=== PATIENT | female | born 1985 | race Caucasian/White ===

== ENCOUNTER 2020-05-23 06:40 | Day surgery (SDC) | payer MEDICAID ==
[~2020-05-23] VITALS: Ht 152.4 cm; Wt 51.7 kg
[~2020-05-23 06:40] MED LIST: ALBU2.5V13 NEB; BACL10TA GT; DULR RC; IBUP-1984 GT; LEVE500T GT; LORA10TA7 GT; MEDR150D9 IM; MULT-620 PO; POLY119P2 PO; POTA20LI5 CORPAK; SENN-263 PO
[2020-05-23 07:05] VITALS: BP 96/65
[2020-05-23] MEDS ORDERED: iohexol 300 MG/1 ML 50ml polymer ONE (08:26)
[2020-05-23 09:12] VITALS: BP 107/62
== END 2020-05-23 09:30 | disposition home or self-care (01) ==
LOC: SSTAY O 06:40
PROVIDERS: ATTEND Radiology Vascular & Interventional Radiology
DX: Z93.1 Gastrostomy status (principal); G80.1 Spastic diplegic cerebral palsy
CPT/HCPCS: 43762; 74018; Q9967; B4087

== ENCOUNTER 2020-11-21 08:37 | Outpatient (CLI) | payer MEDICAID ==
[~2020-11-21 08:37] MED LIST changes: -POTA20LI5 CORPAK
== END 2020-11-21 23:59 | disposition home or self-care (01) ==
LOC: RAD 08:37
PROVIDERS: ATTEND Family Medicine
DX: N83.201 Unspecified ovarian cyst, right side (principal); N85.4 Malposition of uterus; R16.1 Splenomegaly, not elsewhere classified; R14.0 Abdominal distension (gaseous)
CPT/HCPCS: 76700; 76856; 93976